=== PATIENT | male | born 1975 | race Caucasian/White ===

== ENCOUNTER 2017-11-28 09:00 | Outpatient (RCR) | payer OTHER, SELFPAY | END 2018-01-02 13:39 | disposition home or self-care (01) | LOC: OT 09:00 | PROVIDERS: PCP Orthopaedic Surgery; Visit Provider Orthopaedic Surgery Adult Reconstructive Orthopaedic Surgery | DX: M75.112 Incomplete rotator cuff tear or rupture of left shoulder, not specified as traumatic (principal); M77.12 Lateral epicondylitis, left elbow | CPT/HCPCS: 97014; 97033; 97110; 97166; G0283 ==